=== PATIENT | male | born 1955 | race Hispanic/Latino ===

== ENCOUNTER → 2017-09-12 10:43 | Outpatient (CLI) | payer MEDICARE, MEDICAID, SELFPAY ==
[2017-09-12 12:56] LABS: Alanine Aminotransferase 27 IU/L (21-72); Albumin 4.1 g/dL (3.5-5.0); Albumin Globulin Ratio 1.1 (1.0-2.8); Alkaline Phosphatase 84 U/L (38-126); Aspartate Aminotransferase 54 IU/L (17-59); Bilirubin Total 0.6 mg/dL (0.2-1.3); Blood Urea Nitrogen 15 mg/dL (9-20); Carbon Dioxide 28 mmol/L (22-32); Chloride 101 mmol/L (98-107); Estimated Glomerular Filt Rate > 60.0 mL/min (>60); Globulin 3.9 g/dL (1.7-4.1); Glucose 101 mg/dL (80-110); HEMOLYSIS < 15 (0-50); Potassium 4.1 mmol/L (3.4-5.1); Sodium 139 mmol/L (137-145)
[2017-09-12 12:59] LABS: Add Manual Diff / Slide Review NO; Basophils Percent Auto 0.6 % (0-2); Eosinophils Percent Auto 1.6 % (2-4); Hematocrit 36.1 % (41-53); Hemoglobin 12.3 g/dL (13.5-17.5); Lymphocytes Percent Auto 49.2 % (25-40); Mean Corpuscular HGB Conc 34.2 % (30-36); Mean Corpuscular Hemoglobin 31.6 PG (26-34); Mean Corpuscular Volume 92.3 fL (80-100); Monocytes Percent Auto 8.3 % (3-14); Neutrophils Absolute Auto 1800 /uL (3000-5900); Neutrophils Percent Auto 40.3 % (50-75); Platelet Count 168 X10^3/uL (150-400); Red Cell Distribution Width 14.1 % (11.6-14.8); White Blood Cell Count 4.5 X10^3/uL (4.5-11.0)
[2017-09-12 21:19] LABS: Hepatitis B Surface Antigen NEGATIVE s/c (NEGATIVE)
[2017-09-14 14:01] LABS: Hepatitis A Antibody IgM Nonreactive (Nonreactive); Hepatitis B Core IgM Nonreactive (Nonreactive)
[2017-09-14 14:38] LABS: Hepatitis B Surf Ab Qualitativ Nonreactive (Nonreactive)
== END ==
PROVIDERS: Family Provider Physician Assistant Medical; Visit Provider Nurse Practitioner Family
DX: Z11.3 Encounter for screening for infections with a predominantly sexual mode of transmission (principal); Z11.59 Encounter for screening for other viral diseases; Z13.228 Encounter for screening for other metabolic disorders
CPT/HCPCS: 36415; 80053; 85025; 86592; 86705; 86706; 86709; 87340

== ENCOUNTER → 2017-09-26 08:44 | Outpatient (CLI) | payer MEDICARE, MEDICAID, SELFPAY ==
--- NOTE | 2017-09-26 | DI.RAD.S_ITS ---
PROCEDURE: XR HAND LT MIN 3V INDICATIONS: Left hand 3rd digit pain and decreased ROM TECHNIQUE: 3 views of the hand(s) acquired. COMPARISON: [facility], , HAND MIN 3VW (LT), 05/15/2014, 10:25. FINDINGS: Bones: No fractures or dislocations. There are numerous marginal lucencies, for example at the second third and fourth MCP joints as well as a PIP joints of the middle and ring finger at the DIP joint of the middle finger, which are suspicious for erosions. Mild narrowing of the second and third MCP joint spaces. There is also mild narrowing of the fifth MCP joint space. Possible cystic changes present the proximal lunate. Hook-like osteophytes involving the second-fourth metacarpal heads Soft tissues: No suspicious soft tissue calcifications. IMPRESSION: Left hand polyarticular marginal lucencies suggestive of erosive arthropathy. Please correlate clinically and with laboratory data. These appear slightly progressed since prior study dated 05/15/14. Hook-like osteophytes involving the second-fourth metacarpal heads, raising the possibility of deposition arthropathy such as hemochromatosis or CPPD among other possibilities. Please correlate clinically. These appear unchanged Dictated by: Lyle Boswell M.D. on 09/26/2017 at 8:17 Approved by: Lyle Boswell M.D. on 09/26/2017 at 8:29
== END ==
PROVIDERS: Family Provider Physician Assistant Medical; PCP Family Medicine; Visit Provider Physician Assistant Medical
DX: M79.642 Pain in left hand (principal); M79.645 Pain in left finger(s)
CPT/HCPCS: 73130

== ENCOUNTER → 2017-09-27 08:28 | Outpatient (CLI) | payer MEDICARE, MEDICAID, SELFPAY ==
[2017-09-27 09:49] LABS: Erythrocyte Sedimentation Rate 25 MM/HR (0-15)
[2017-09-27 10:00] LABS: C-Reactive Protein Quant < 0.5 mg/dL (<1.0); Rheumatoid Factor < 8.6 IU/mL (<12.0)
[2017-09-27 10:46] LABS: Hep C Virus Ab w/Reflex Quant REACTIVE s/c (NEGATIVE)
[2017-09-28 12:34] LABS: CCP Antibody (IgG) < 16 Units (< 20)
[2017-09-29 22:52] LABS: ANA Screen NEGATIVE (Negative); DNA Antibody Crithidia IFA NEGATIVE (Negative); Rheumatoid Factor <14 IU/mL; Sjogren Antiboday SS-A <1.0 NEG AI (<1.0 NEGATIVE); Sjogren Antiboday SS-B <1.0 NEG AI (<1.0 NEGATIVE); Sm Antibody <1.0 NEG AI (<1.0 NEGATIVE); Sm/RNP Antibody <1.0 NEG AI (<1.0 NEGATIVE)
== END ==
PROVIDERS: Family Provider Physician Assistant Medical; Visit Provider Physician Assistant Medical
DX: M25.50 Pain in unspecified joint (principal); R93.6 Abnormal findings on diagnostic imaging of limbs; M12.9 Arthropathy, unspecified
CPT/HCPCS: 36415; 83516; 85651; 86038; 86140; 86430; 86803; 87522

== ENCOUNTER → 2017-11-07 14:27 | Outpatient (CLI) | payer MEDICARE, MEDICAID, SELFPAY | PROVIDERS: Family Provider Physician Assistant Medical; PCP Physician Assistant Medical; Visit Provider Physician Assistant Medical | DX: B18.2 Chronic viral hepatitis C (principal); B19.20 Unspecified viral hepatitis C without hepatic coma | CPT/HCPCS: 0001M; 36415; 82172; 82247; 82977; 83010; 83883; 84460; 87902 ==

== ENCOUNTER → 2017-12-09 07:44 | Outpatient (CLI) | payer MEDICARE, MEDICAID, SELFPAY ==
--- NOTE | 2017-12-09 | DI.US.S_ITS ---
PROCEDURE: US ABDOMEN COMPLETE INDICATIONS: ELEVATED LIVER ENZYMES TECHNIQUE: Real-time scanning was performed of the abdominal and retroperitoneal organs, with image documentation. COMPARISON: [facility], CT, ABD/PELVIS W/CON (PNL), 06/17/2014, 14:32. FINDINGS: Liver: Liver is diffusely increased in echogenicity. No focal hepatic abnormalities identified. Normal hepatic size. Gallbladder: Gallbladder sludge present no gallbladder wall thickening or pericholecystic fluid. Biliary ducts: Intrahepatic bile ducts are non-dilated. Extrahepatic bile duct caliber measures 5.2 mm. Normal is 6-7 mm or less in diameter, or 10 mm or less post-cholecystectomy. Pancreas: Visualized portions of the pancreas are sonographically normal. Spleen: Spleen is normal in size and homogeneous in echotexture. Kidneys: Kidneys are normal in size and echotexture. Right kidney measures 10.3 cm long; left kidney measures 9.9 cm long. No hydronephrosis or nephrolithiasis. No solid masses. Aorta: Visualized aorta is normal in caliber at less than 3 cm. Iliacs: Proximal common iliac arteries are normal in caliber at less than 2.5 cm. IVC: Intrahepatic inferior vena cava is patent. Miscellaneous: No free abdominal fluid. IMPRESSION: 1. Increased hepatic echogenicity noted possibly related to hepatic steatosis but other sources of hepatocellular disease cannot be excluded. Recommend clinical correlation. 2. Gallbladder sludge. Dictated by: Nick Willoughby [facility] Interpreted: Asher Wilkerson MD on 12/09/2017 at 9:04 Approved by: Asher Wilkerson M.D. on 12/09/2017 at 13:21
== END ==
PROVIDERS: Family Provider Physician Assistant Medical; PCP Physician Assistant Medical; Visit Provider Physician Assistant Medical
DX: R74.8 Abnormal levels of other serum enzymes (principal); K83.8 Other specified diseases of biliary tract
CPT/HCPCS: 76700

== ENCOUNTER 2018-03-04 12:30 | Emergency (ER) | payer MEDICARE, MEDICAID, SELFPAY ==
[2018-03-04 12:40] VITALS: BP 131/69; PULSE 69; RESP 20; TEMP 36.5; O2SAT 95; BMI 23.7
--- NOTE | 2018-03-04 12:45 | DI.RAD.S_ITS ---
PROCEDURE: XR CHEST 2V INDICATIONS: productive cough x 2 weeks TECHNIQUE: 2 views of the chest were acquired. COMPARISON: [facility], CR, CHEST 2VW, 02/15/2014, 12:00. [facility], CR, XR CHEST 2VW, 03/15/2015, 18:04. FINDINGS: Surgical changes and devices: None. Lungs and pleura: No pleural effusions or pneumothorax. Moderate air space opacity within the right upper lung. Mediastinum: Mediastinal contours are normal. Heart size is normal. Bones and chest wall: No suspicious bony abnormalities. Soft tissues appear unremarkable. IMPRESSION: Right upper lung pneumonia. Follow up plain films of the chest are recommended to ensure resolution, and to exclude underlying or central malignancy. Dictated by: Vignesh Dubon M.D. on 03/04/2018 at 13:03 Approved by: Vignesh Dubon M.D. on 03/04/2018 at 13:03
--- NOTE | 2018-03-04 13:13 | ED.URI ---
HPI - URI/Sore Throat <LISA Freedman - Last Filed: 03/04/18 22:01> General Chief Complaint: Upper Respiratory Symptoms Stated Complaint: THINKS HE HAS PNEUMONIA Time Seen by Provider: 03/04/18 13:41 History of Present Illness HPI Narrative: 63-year-old male with history of hepatitis C and is a daily smoker here for complaint of having cough over the past week and a half. He states that the cough has worsened over the past week he is concerned that he has pneumonia. He denies having any fevers. He states that his cough has been productive. Positive p.o. intake. He denies any chest pain. He denies any recent hospitalization or recent antibiotic use. He does state that he has had some shortness of breath with activity. He denies any other concerns or complaints at this time. Complaint: cough Related Data Previous Rx's Medication Instructions Recorded doxycycline hyclate 100 mg PO BID #14 cap 03/04/18 Allergies Allergy/AdvReac Type Severity Reaction Status Date / Time No Known Drug Allergies Allergy Verified 03/04/18 12:45 Review of Systems <LISA Freedman - Last Filed: 03/04/18 22:01> Constitutional Denies chills, Denies fever(s), Denies lethargy and Denies weakness Eyes Denies change in vision, Denies eye discharge, Denies irritation and Denies loss of vision ENT Ears, Nose, Mouth, and Throat: Denies change in voice, Denies neck pain, Denies sore throat and Denies throat swelling Cardiovascular Denies chest pain, Denies irregular heart rhythm, Denies lightheadedness, Denies palpitations and Denies orthopnea Respiratory Reports cough and Denies wheezing Gastrointestinal Gastrointestinal: Denies abdominal pain, Denies change in bowel habits, Denies diarrhea, Denies nausea and Denies vomiting Genitourinary Denies hematuria, Denies flank pain, Denies urinary incontinence and Denies urinary urgency Musculoskeletal Denies neck pain Integumentary/Breasts Denies pruritus, Denies erythema, Denies rash and Denies wounds Neurologic Denies confusion, Denies loss of vision and Denies weakness Psychiatric Denies anxiety, Denies confusion, Denies depression, Denies homicidal ideation and Denies suicidal ideation Endocrine Denies palpitations Hematologic/Lymphatic Denies easy bruising Allergic/Immunologic Denies urticaria, Denies throat swelling and Denies wheezing Exam <LISA Freedman - Last Filed: 03/04/18 22:01> Initial Vital Signs Initial Vital Signs: Vital Signs Temperature 97.7 F 03/04/18 12:40 Pulse Rate 69 03/04/18 12:40 Respiratory Rate 20 03/04/18 12:40 Blood Pressure 131/69 03/04/18 12:40 Pulse Oximetry 95 03/04/18 12:40 Const General: cooperative and well developed Nutritional Appearance: well nourished Orientation: alert, awake, oriented x3 and not confused [facility] Mouth: oral mucosae normal and moist mucous membranes Throat: posterior oropharynx normal Eyes Conjunctivae: conjunctivae normal Sclera: sclerae normal Pupils: PERRL EOM: EOM intact bilaterally Resp Effort & Inspection: normal respiratory effort, able to speak in complete sentences, no respiratory distress and no use of accessory muscles Auscultation: no rales, rhonchi and no wheezes Cardio Rate: regular rate Rhythm: regular rhythm Heart Sounds: no click, no gallops, no murmurs and no rubs Skin General: no rashes or lesions noted, No jaundice and No petechiae Neuro General: alert, oriented x3, gait normal and no focal motor deficits Speech: speech normal <Harlan Boyle DO - Last Filed: 03/05/18 07:04> Initial Vital Signs Initial Vital Signs: Vital Signs Temperature 97.7 F 03/04/18 12:40 Pulse Rate 69 03/04/18 12:40 Respiratory Rate 20 03/04/18 12:40 Blood Pressure 131/69 03/04/18 12:40 Pulse Oximetry 95 03/04/18 12:40 Scores <LISA Freedman - Last Filed: 03/04/18 22:01> CURB-65 Confusion: No Respiratory rate greater or equal to 30: No SBP <90mmHg or DBP less or equal to 60mmHg: No Age 65 or Older: No Score 0-1 Outpatient care, Score 2 Inpt vs. Obs, Score 3 or over Inpt admit with ICU for score of 4-5 Course <LISA Freedman Last Filed: 03/04/18 22:01> Orders Ordered: Discontinued Medications Albuterol (Ventolin Hfa Prepack) 1 box [facility] ONE Stop: 03/04/18 13:57 Last Admin: 03/04/18 14:05 Dose: 1 box Albuterol/Ipratropium (Duoneb) 3 ml INH NOW ONE Stop: 03/04/18 13:57 Last Admin: 03/04/18 14:02 Dose: 3 ml Vital Signs - 8 hr 03/04/18 14:06 Pulse Rate 75 Respiratory Rate 15 Pulse Oximetry 95 <Harlan Boyle DO - Last Filed: 03/05/18 07:04> Orders Ordered: Discontinued Medications Albuterol (Ventolin Hfa Prepack) 1 box [facility] Stop: 03/04/18 13:57 Last Admin: 03/04/18 14:05 Dose: 1 box Albuterol/Ipratropium (Duoneb) 3 ml INH NOW ONE Stop: 03/04/18 13:57 Last Admin: 03/04/18 14:02 Dose: 3 ml Vital Signs - 8 hr 03/04/18 14:06 Pulse Rate 75 Respiratory Rate 15 Pulse Oximetry 95 MDM - URI/Sore Throat <LISA Freedman - Last Filed: 03/04/18 22:01> Imaging Data Chest x-ray: Radiologist's impression: SOULEYMANE Carvalho [id number] XRay Report Signed Patient: Hussein Medina [facility]#: [id number] : 6Acct:[id number] Age/Sex: 63 / MDate of Service: 03/04/18 Loc: ED Accession Number: [id number] Procedure: XR chest 2V Ordering Provider: Angelo Gross PROCEDURE: XR CHEST 2V INDICATIONS: productive cough x 2 weeks TECHNIQUE: 2 views of the chest were acquired. COMPARISON: [facility], CR, CHEST 2VW, 02/15/2014, 12:00. [facility], CR, XR CHEST 2VW, 03/15/2015, 18:04. FINDINGS: Surgical changes and devices: None. Lungs and pleura: No pleural effusions or pneumothorax. Moderate air space opacity within the right upper lung. Mediastinum: Mediastinal contours are normal. Heart size is normal. Bones and chest wall: No suspicious bony abnormalities. Soft tissues appear unremarkable. IMPRESSION: Right upper lung pneumonia. Follow up plain films of the chest are recommended to ensure resolution, and to exclude underlying or central malignancy. Dictated by: Vignesh Dubon M.D. on 03/04/2018 at 13:03 Approved by: Vignesh Dubon M.D. on 03/04/2018 at 13:03 [facility] Narrative Medical decision making narrative: Chest x-ray shows signs consistent with right upper lung pneumonia. He is in no acute distress. He is able to speak full sentences. Coarse lung sounds are heard. He was given a breathing treatment in the emergency room which helped his symptoms. He is prescribed doxycycline. He is also prescribed an albuterol inhaler to help open up the airways. Plenty of fluids and rest. [id number] ibuprofen as needed for any discomfort. Follow up with primary care provider next week. For any worsening symptoms return to the emergency room. Discharge Plan Departure Patient Disposition: Home Clinical Impression: Community acquired pneumonia Discharge Date/Time: 03/04/18 14:22 Interventions: ED Discharge Assessment Last Done: 03/04/18 14:21 Instructions: DI for Pneumonia -- Adult Activity Restrictions/Additional Instructions: X-ray shows signs consistent with right upper lobe pneumonia. You are placed on an antibiotic called doxycycline use as directed. You are also prescribed an albuterol inhaler to help open up the airways also use as directed. Plenty of fluids and rest. Use [id number] ibuprofen as needed for any discomfort. Follow up with primary care provider next week for re-evaluation. For any worsening symptoms return to the emergency room. Prescriptions: New doxycycline hyclate 100 mg capsule 100 mg PO BID Qty: 14 RF: 0 Referrals: Ethan Herring [Primary Care Provider] - <Harlan Boyle DO - Last Filed: 03/05/18 07:04> Cosign ED Attending Destinee Attestation: I was available for consultation during this patient's emergency department encounter
[2018-03-04 13:44] VITALS: BP 134/78; PULSE 64; RESP 16; O2SAT 94
[2018-03-04] MEDS: ALBUTEROL/IPRATROPIUM 3 ML AMPUL INH (14:02)
[2018-03-04] MEDS: ALBUTEROL HFA PREPACK 1 BOX MISC (14:05)
[2018-03-04 14:06] VITALS: PULSE 75; RESP 15; O2SAT 95
== END 2018-03-04 14:22 | disposition home or self-care (01) ==
PROVIDERS: Emergency Provider Nurse Practitioner Family; Family Provider Physician Assistant Medical; PCP Physician Assistant Medical
DX: J18.9 Pneumonia, unspecified organism (principal)
CPT/HCPCS: 71046; 94640; 99282; 99283

== ENCOUNTER 2018-10-06 14:43 | Emergency (ER) | payer MEDICARE, MEDICAID, SELFPAY ==
[2018-10-06 14:50] VITALS: BP 130/68; PULSE 75; RESP 20; TEMP 36.6; O2SAT 96; BMI 22.4
--- NOTE | 2018-10-06 15:06 | ED_ITS ---
HPI - Wound/Laceration General Chief Complaint: Wound/Laceration Stated Complaint: hit head on sprinkler in storage unit, bleeding Time Seen by Provider: 10/06/18 14:58 Source: patient Mode of arrival: ambulatory Limitations: no limitations History of Present Illness HPI narrative: Patient is a 63-year-old male who presents with head laceration. He was moving he was pushing a box up when he hit his head on a sprinkler. He did cut it he has some bleeding no loss of consciousness. He said the pain initially was quite bad and he felt nauseous but did not throw up no longer feels nauseous. He has no focal deficits no numbness tingling or weakness. Location: scalp (Front) Related Data Home Medications Medication Instructions Recorded Confirmed albuterol sulfate [Ventolin HFA] 2 puff INHALATION Q4H PRN 10/06/18 10/06/18 Allergies Allergy/AdvReac Type Severity Reaction Status Date / Time No Known Drug Allergies Allergy Verified 03/04/18 12:45 Review of Systems Review of Systems ROS Unobtainable: All systems reviewed & are unremarkable except as noted in HPI and below Constitutional Denies chills, Denies fever(s), Denies lethargy and Denies weakness Eyes Denies change in vision, Denies eye discharge, Denies irritation and Denies loss of vision ENT Ears, Nose, Mouth, and Throat: Denies change in voice, Denies neck pain and Denies sore throat Cardiovascular Denies chest pain, Denies irregular heart rhythm, Denies lightheadedness, Denies palpitations, Denies dyspnea, Denies dyspnea on exertion and Denies orthopnea Respiratory Denies cough, Denies dyspnea, Denies dyspnea on exertion and Denies wheezing Gastrointestinal Gastrointestinal: Denies abdominal pain, Reports nausea and Denies vomiting Musculoskeletal Denies neck pain Integumentary/Breasts Reports as per HPI Neurologic Denies loss of vision and Denies weakness Endocrine Denies palpitations Allergic/Immunologic Denies wheezing COUNTS INCLUDE 234 BEDS AT THE [facility] Medical History Patient denies significant medical history (Acute) Up to date with tetanus vaccination (Acute) Social History Smoking Status: Current every day smoker Social History Smoking Status: Current every day smoker Exam Initial Vital Signs Initial Vital Signs: Vital Signs Temperature 97.8 F 10/06/18 14:50 Pulse Rate 75 10/06/18 14:50 Respiratory Rate 20 10/06/18 14:50 Blood Pressure 130/68 10/06/18 14:50 Pulse Oximetry 96 10/06/18 14:50 GENERAL: Well-appearing, well-nourished and in no acute distress. HEENT: Head small superficial laceration about 1.5 cm in the front scalp area. The skin is actually close bleeding controlled. EOMI, pupils reactive, face symmetric NECK: Supple no vertebral tenderness no step-off CARDIOVASCULAR: Regular rate and rhythm without murmurs, rubs or gallops. RESPIRATORY: Breath sounds equal bilaterally, no wheezes rales or rhonchi. EXTREMITIES: Normal range of motion, no clubbing or edema. Neurovascularly intact NEUROLOGICAL: Alert and oriented x4.Normal gait and speech. Cranial nerves II through XII grossly intact. [employer]visor strength equal bilaterally moving extremities SKIN: Warm, dry, no laceration, no petechiae, no rashes or lesions. Course Vital Signs - 8 hr 10/06/18 14:50 10/06/18 15:09 Temperature 97.8 F 98.7 F Pulse Rate 75 67 Respiratory Rate 20 18 Blood Pressure 130/68 114/75 Pulse Oximetry 96 98 Discharge Plan Departure Patient Disposition: Home Clinical Impression: Laceration Discharge Date/Time: 10/06/18 15:10 Interventions: ED Discharge Assessment Last Done: 10/06/18 15:09 Instructions: DI for Minor Laceration Activity Restrictions/Additional Instructions: *You have been diagnosed with laceration of scalp *What to do: At this time no indication for sutures or imaging. Keep wound clean and dry may apply antibiotic ointment to it 1-2 times daily *Continue to take medications as directed *Follow up with your primary care provider in 2-3 days *Return to ER if you should have redness, pus, swelling, persistent vomiting, weakness in extremities or any new, worsening or concerning symptoms Prescriptions: No Action albuterol sulfate [Ventolin HFA] 90 mcg/actuation HFA aerosol inhaler 2 puff inhalation Q4H PRN (Reason: Shortness Of Breath Or Wheezing) RF: 0 Referrals: Ethan Herring [Primary Care Provider] -
[2018-10-06 15:09] VITALS: BP 114/75; PULSE 67; RESP 18; TEMP 37.1; O2SAT 98
== END 2018-10-06 15:10 | disposition home or self-care (01) ==
PROVIDERS: Emergency Provider Emergency Medicine; Family Provider Physician Assistant Medical; PCP Physician Assistant Medical
DX: S01.01XA Laceration without foreign body of scalp, initial encounter (principal); W22.8XXA Striking against or struck by other objects, initial encounter
CPT/HCPCS: 99282; 99283

== ENCOUNTER → 2020-09-22 08:50 | Outpatient (CLI) | payer MEDICARE, MEDICAID, SELFPAY ==
[2020-09-22 10:15] LABS: Add Manual Diff / Slide Review NO; Basophils Absolute Auto 0 /uL (0-100); Basophils Percent Auto 0.5 % (0-2); Eosinophils Absolute Auto 200 /uL (0-450); Eosinophils Percent Auto 2.6 % (2-4); Hematocrit 40.1 % (41-53); Hemoglobin 13.1 g/dL (13.5-17.5); Lymphocytes Absolute Auto 3700 /uL (1100-4500); Lymphocytes Percent Auto 56.3 % (25-40); Mean Corpuscular HGB Conc 32.6 % (30-36); Mean Corpuscular Hemoglobin 30.1 PG (26-34); Mean Corpuscular Volume 92.3 fL (80-100); Monocytes Absolute Auto 500 /uL (0-900); Monocytes Percent Auto 7.3 % (3-14); Neutrophils Absolute Auto 2200 /uL (1500-7000); Neutrophils Percent Auto 33.3 % (50-75); Platelet Count 185 X10^3/uL (150-400); Red Blood Cell Count 4.34 X10^6/uL (4.5-5.9); White Blood Cell Count 6.6 X10^3/uL (4.5-11.0)
[2020-09-22 10:47] LABS: Alanine Aminotransferase 26 IU/L (<50); Albumin 3.8 g/dL (3.5-5.0); Albumin Globulin Ratio 1.1 (1.0-2.8); Alkaline Phosphatase 92 U/L (38-126); Aspartate Aminotransferase 46 IU/L (17-59); BUN Creatinine Ratio 39.3 (6-22); Bilirubin Total 0.3 mg/dL (0.2-1.3); Bilirubin Unconjugated 0.1 mg/dL (0.0-1.1); Blood Urea Nitrogen 22 mg/dL (9-20); Calcium 8.9 mg/dL (8.4-10.2); Carbon Dioxide 28 mmol/L (22-32); Chloride 101 mmol/L (98-107); Cholesterol 156 mg/dL (140-199); Estimated Glomerular Filt Rate > 60.0 mL/min (>60); Globulin 3.6 g/dL (1.7-4.1); Glucose 92 mg/dL (80-110); HDL Cholesterol 87 mg/dL (40-60); HEMOLYSIS < 15 (0-50); LDL Cholesterol Calculated 57 mg/dL (<100); Potassium 4.2 mmol/L (3.4-5.1); Sodium 137 mmol/L (137-145); Total Protein 7.4 g/dL (6.3-8.2); Triglycerides 58 mg/dL (35-150)
[2020-09-22 17:14] LABS: HIV 1 & 2 Ab/Ag 4th Gen Combo NEGATIVE (NEGATIVE)
== END ==
PROVIDERS: Family Provider Physician Assistant Medical; PCP Family Medicine; Visit Provider Family Medicine
DX: F19.90 Other psychoactive substance use, unspecified, uncomplicated (principal); I10 Essential (primary) hypertension; B18.2 Chronic viral hepatitis C; F11.20 Opioid dependence, uncomplicated
CPT/HCPCS: 36415; 80053; 80061; 80076; 85025; 87389